=== PATIENT | male | born 1970 | race Caucasian/White ===

== ENCOUNTER 2017-01-11 22:56 | Emergency (ER) | payer OTHER ==
[~2017-01-11] VITALS: Ht 188 cm; Wt 110.9 kg
[2017-01-12] MEDS ORDERED: NORCO 5/3251 TABLET PO (01:14)
[2017-01-12] MEDS ORDERED: NAPROXEN500 MG PO (01:14)
[2017-01-12 01:26] VITALS: BP 130/68
== END 2017-01-12 01:28 | disposition home or self-care (01) ==
LOC: EME 22:56
DX: M25.562 Pain in left knee (principal)
CPT/HCPCS: 93971; 99281; 99283